=== PATIENT | female | born 1935 | race Caucasian/White ===

== ENCOUNTER 2018-02-16 10:38 | Emergency (ER) | payer OTHER ==
[~2018-02-16] VITALS: Ht 165.1 cm; Wt 75.8 kg
[~2018-02-16 10:38] MED LIST: CRESTOR20 MG PO; GLUCOPHAGE500 MG PO
[2018-02-16 13:53] VITALS: BP 160/61
== END 2018-02-16 13:54 | disposition home or self-care (01) ==
LOC: EME 10:38
DX: R04.0 Epistaxis (principal); J06.9 Acute upper respiratory infection, unspecified; Z79.82 Long term (current) use of aspirin; E11.9 Type 2 diabetes mellitus without complications; Z79.84 Long term (current) use of oral hypoglycemic drugs
CPT/HCPCS: 99281; 99284